=== PATIENT | female | born 1975 | race Caucasian/White ===

== ENCOUNTER → 2019-03-31 | Outpatient (CLI) | payer BC ==
--- NOTE | 2019-03-31 15:45 | US ---
EXAMINATION TYPE: US extremity nonvascular ltd RT DATE OF EXAM: 03/31/2019 COMPARISON: NONE CLINICAL HISTORY: M25.561 right knee pain. Right knee pain TECHNIQUE/FINDINGS: Targeted ultrasound was performed in the area of the patient's pain in the poplit eal fossa behind the right knee. Normal-appearing vasculature and musculature is seen. No subcutaneou s edema. No focal solid or cystic mass. Scanned right popliteal fossa: appears wnl, no Gaytan's cyst s een at this time. IMPRESSION: No sonographic correlate for the patient's pain. No popliteal fossa cyst is seen.
== END | disposition home or self-care (01) ==
LOC: RADUSWWP 14:15
PROVIDERS: ATTEND Family Medicine
DX: M25.561 Pain in right knee (principal)

== ENCOUNTER → 2021-06-13 | Outpatient (CLI) | payer BC ==
--- NOTE | 2021-06-13 09:08 | CT ---
EXAMINATION TYPE: CT angio head DATE OF EXAM: 06/13/2021 8:58 AM COMPARISON: None HISTORY: Family history CT DLP: 1790.2 mGycm Automated exposure control for dose reduction was used. TECHNIQUE: Performed with IV Contrast, patient injected with 100 mL of Isovue 300. . FINDINGS: Ventricular system is compatible with patient's age. No midline shift or acute hemorrhage. Calvarium intact. Intraparenchymal calcification incidentally noted. Orbits are symmetric. Changes of mild chronic sinusitis. Craniocervical junction maintained. Left vertebral artery is dominant. Vertebrobasilar and carotid systems are patent. Anterior cerebral, posterior cerebral and middle cerebral arteries are patent with no sizable aneurysm or vascular malf ormation. IMPRESSION: NO EVIDENCE OF ANEURYSM OR VASCULAR MALFORMATION.
== END | disposition home or self-care (01) ==
LOC: RADCTMAIN 08:08
PROVIDERS: ATTEND Family Medicine
DX: Z82.49 Family history of ischemic heart disease and other diseases of the circulatory system (principal)
CPT/HCPCS: 70496; Q9967

== ENCOUNTER → 2021-07-11 | Outpatient (CLI) | payer BC ==
--- NOTE | 2021-07-12 12:40 | MM ---
Reason for exam: screening (asymptomatic). Last mammogram was performed 2 years and 2 months ago. History: Saline implants in both breasts, 2000. Physical Findings: A clinical breast exam by your physician is recommended on an annual basis and results should be correlated with mammographic findings. MG Screening Mammo Implant/CAD Bilateral CC, MLO, and ID view(s) were taken. Prior study comparison: May 04, 2019, mammogram, performed at [facility]. June 11, 2016, mammogram, performed at [facility]. The breast tissue is heterogeneously dense. This may lower the sensitivity of mammography. Bilateral implants are intact. No significant changes when compared with prior studies. ASSESSMENT: Benign, BI-RAD 2 RECOMMENDATION: Routine screening mammogram of both breasts in 1 year.
== END ==
LOC: RADMAMWWP 13:30
PROVIDERS: ATTEND Family Medicine
DX: Z12.31 Encounter for screening mammogram for malignant neoplasm of breast (principal)
CPT/HCPCS: 77067

== ENCOUNTER → 2021-08-20 | Outpatient (CLI) | payer BC ==
--- NOTE | 2021-08-21 03:56 | MR ---
EXAMINATION TYPE: MR knee RT wo con DATE OF EXAM: 08/20/2021 COMPARISON: None HISTORY: Right knee pain for 2 years. Multiplanar multiecho imaging of the right knee without contrast. Anterior and posterior cruciate ligaments are intact. There is a small knee joint effusion. Patella i s intact. The collateral ligaments are intact. The medial and lateral menisci are intact. I see no bony destructive process. There is no evidence of a fracture. Joint spaces are fairly normal. There is no evidence of a soft tissue mass. IMPRESSION: Small knee joint effusion. No evidence of ligamentous or meniscal tear. No evidence for fracture. Nor mal joint spaces.
== END | disposition home or self-care (01) ==
LOC: RADMRIMAIN 18:23
PROVIDERS: ATTEND Family Medicine
DX: M25.461 Effusion, right knee (principal)

== ENCOUNTER 2022-05-03 16:23 | Emergency (ER) | payer BC ==
[2022-05-03] MEDS ORDERED: KETOROLAC 15 MG/ML 1 ML VIAL IVP STA (16:32)
[2022-05-03 16:35] VITALS: TEMP 98.6
--- NOTE | 2022-05-03 16:35 | ED ---
Chest Pain HPI - General Stated Complaint: chest pain Time Seen by Provider: 05/03/22 16:23 Source: patient, EMS, RN notes reviewed Mode of arrival: EMS - History of Present Illness Initial Comments: 46-year-old female with a benign past medical history who was getting her nails on a local shop when she started developing midsternal chest pain she stated it was 8 or 9/10 severity somewhat dull and achy. It is now down to a 5/10 she has no known history of heart disease she is a nonsmoker. Patient states she felt somewhat lightheaded after this episode started. She does not feel lightheaded or dizzy at this time. She does not recall doing anything strenuous to 1 per her torso. She states she was in a upright position with her arms extended was using her nails on. She states it does hurt to move her to push on the localized area and the pain increases with deep breathing. She'll sweats cough nausea vomiting or other symptoms. Additionally patient states that she just started menopause and does not believe she is MD Complaint: chest pain - Related Data Home Medications Medication Instructions Recorded Confirmed Cholecalciferol [Vitamin D3 (125 125 mcg PO DAILY 05/03/22 05/03/22 Mcg = 5000 Iu)] Focus Supplement(Unknown) 2 cap PO DAILY 05/03/22 05/03/22 Multivitamins, Thera [Multivitamin 1 tab PO DAILY 05/03/22 05/03/22 (formulary)] Vitamin B Complex 1 cap PO DAILY 05/03/22 05/03/22 Previous Rx's Medication Instructions Recorded Ibuprofen [Motrin] 600 mg PO Q6HR PRN #20 tab 05/03/22 Allergies Allergy/AdvReac Type Severity Reaction Status Date / Time hydrocodone [From Vicodin] AdvReac Nausea & Verified 05/03/22 18:27 Vomiting Review of Systems ROS Statement: Those systems with pertinent positive or pertinent negative responses have been documented in the HPI. ROS Other: All systems not noted in ROS Statement are negative. EKG Findings - EKG Results: EKG: interpreted by NOEMI, sinus rhythm, normal axis, normal QRS, normal ST/T, no acute changes (Ventricular rate 52. Interval 166 QRS duration 90 QT since QTC 441/[address]-T wave changes) EKG shows: bradycardia General Exam - General Exam Comments Initial Comments: This is a well-developed well-nourished awake alert oriented 4 female General appearance: alert, in no apparent distress Head exam: Present: atraumatic, normocephalic, normal inspection Eye exam: Present: normal appearance, PERRL, EOMI. Absent: scleral icterus, conjunctival injection, periorbital swelling ENT exam: Present: normal exam, mucous membranes moist Neck exam: Present: normal inspection, full ROM, other (genitourinary or bruits). Absent: tenderness, meningismus, lymphadenopathy Respiratory exam: Present: normal lung sounds bilaterally, chest wall tenderness (Reproducible tenderness palpation of the mid sternum and left costal sternal junction no step-off or crepitation.). Absent: respiratory distress, wheezes, rales, rhonchi, stridor Cardiovascular Exam: Present: regular rate, normal rhythm, normal heart sounds. Absent: systolic murmur, diastolic murmur, rubs, gallop, clicks GI/Abdominal exam: Present: soft, normal bowel sounds. Absent: distended, tenderness, guarding, rebound, rigid Extremities exam: Present: normal inspection, full ROM, normal capillary refill. Absent: tenderness, pedal edema, joint swelling, calf tenderness Back exam: Present: normal inspection Neurological exam: Present: alert, oriented X3, CN II-XII intact Psychiatric exam: Present: normal affect, normal mood Skin exam: Present: warm, dry, intact, normal color. Absent: rash Course Vital Signs 05/03/22 05/03/22 05/03/22 16:28 16:37 18:26 Temperature 98.6 F Pulse Rate 61 70 Pulse Rate [ 52 L [employer] ] Respiratory 18 18 Rate Blood Pressure 123/85 134/84 O2 Sat by Pulse 100 98 Oximetry 05/03/22 19:32 Temperature Pulse Rate 46 L Pulse Rate [ [employer] ] Respiratory 16 Rate Blood Pressure 120/65 O2 Sat by Pulse 98 Oximetry - Reevaluation(s) Reevaluation #1: 05/03/22 18:38 I did a long discussion with the patient and her significant other regarding the findings thus far. A second troponin will be drawn. This is pending at this time. 05/03/22 18:38 Additional patient is currently pain-free at this time except for the presenting pain is reproducible. Reevaluation #2: 05/03/22 20:07 Repeat troponin identical to the initial one. Chest Pain MDM - MDM Imaging reviewed as well as report no acute processes. I did discuss findings the patient and her significant other the patient appears be consistent with chest wall pain/costochondritis be discharged home with instructions for NSAIDs a prescription will be given as well as lifting restrictions for 3 days. Disposition Clinical Impression: Chest wall pain, Costochondritis Disposition: HOME SELF-CARE Condition: Good Instructions (If sedation given, give patient instructions): Costochondritis (ED) Additional Instructions: No heavy lifting about 10 pounds for the next several days. Work note given Prescriptions: Ibuprofen [Motrin] 600 mg PO Q6HR PRN #20 tab PRN Reason: Pain Is patient prescribed a controlled substance at d/c from ED?: No Referrals: Oraico Dodd MD [Primary Care Provider] - 1-2 days Decision Date: 05/03/22 Decision Time: 20:09
[2022-05-03 17:00] LABS: Basophils # (A) 0.1 k/uL (0-0.2); Basophils % (A) 1 %; Eosinophils # (A) 0.2 k/uL (0-0.7); Eosinophils % (A) 3 %; HCT 40.6 % (34.0-46.0); HGB 13.2 gm/dL (11.4-16.0); Lymphocytes # (A) 2.8 k/uL (1.0-4.8); Lymphocytes % (A) 33 %; MCH 30.9 pg (25.0-35.0); MCHC 32.6 g/dL (31.0-37.0); Monocytes # (A) 0.4 k/uL (0-1.0); Monocytes % (A) 5 %; Neutrophils # (A) 4.7 k/uL (1.3-7.7); Neutrophils % (A) 57 %; Platelet Count 232 k/uL (150-450); RBC 4.27 m/uL (3.80-5.40); WBC 8.4 k/uL (3.8-10.6)
--- NOTE | 2022-05-03 17:01 | XR ---
EXAMINATION TYPE: XR chest 2V DATE OF EXAM: 05/03/2022 4:58 PM COMPARISON: Chest radiographs from TECHNIQUE: XR chest 2V Frontal and lateral views of the chest. CLINICAL INDICATION:Female, 46 years old with history of Chest Pain; FINDINGS: Lungs/Pleura: There is no evidence of pleural effusion, focal consolidation, or pneumothorax. Pulmonary vascularity: Unremarkable. Heart/mediastinum: Cardiomediastinal silhouette is unremarkable. Musculoskeletal: No acute osseous pathology. IMPRESSION: No acute cardiopulmonary disease/process.
[2022-05-03 17:04] LABS: Appearance,Urine Clear (Clear); Bilirubin,Urine Negative (Negative); Blood,Urine Negative (Negative); Color,Urine Light Yellow; Glucose,Urine (UA) Negative (Negative); Hyaline Casts,Urine 10 /lpf (0-2); Ketones,Urine Negative (Negative); Leukocyte Esterase,Urine Trace (Negative); Mucus,Urine Rare /hpf; Nitrite,Urine Negative (Negative); Protein,Urine Negative (Negative); RBC,Urine 3 /hpf (0-5); Specific Gravity,Urine 1.017 (1.001-1.035); Squamous Epithelial Cell,Urine 2 /hpf (0-4); Urobilinogen,Urine <2.0 mg/dL (<2.0); WBC,Urine 2 /hpf (0-5)
[2022-05-03 17:11] LABS: ALT 34 U/L (4-34); AST 35 U/L (14-36); African American GFR (CKD) >90 (>60 ml/min/1.73 sqM); Albumin 4.8 g/dL (3.5-5.0); Alkaline Phosphatase 74 U/L (38-126); Anion Gap 13 mmol/L; Blood Urea Nitrogen 26 mg/dL (7-17); Calcium 9.9 mg/dL (8.4-10.2); Carbon Dioxide 23 mmol/L (22-30); Chloride 101 mmol/L (98-107); Glucose 102 mg/dL (74-99); Lipase 209 U/L (23-300); Magnesium 2.1 mg/dL (1.6-2.3); Non-African American GFR(CKD) 86 (>60 ml/min/1.73 sqM); Potassium 3.7 mmol/L (3.5-5.1); Sodium 137 mmol/L (137-145); Total Bilirubin 0.3 mg/dL (0.2-1.3); Total Protein 7.5 g/dL (6.3-8.2)
[2022-05-03 17:20] LABS: INR 0.9 (<1.2); Prothrombin Time 9.8 sec (9.0-12.0)
[2022-05-03 17:22] LABS: Partial Thromboplastin Time 21.3 sec (22.0-30.0)
[2022-05-03] MEDS ORDERED: MAG HYDROX/AL HYDROX/SIMETH 30 ML, HYOSCYAMINE ELIXIR 10 ML PO STA ×2 (17:42)
[2022-05-03 19:33] VITALS: BP 120/65; RESP 16
[2022-05-03 20:42] VITALS: PULSE 60
== END 2022-05-03 20:41 | disposition home or self-care (01) ==
LOC: EC 16:23
DX: R07.89 Other chest pain (principal); M94.0 Chondrocostal junction syndrome [Tietze]; Z88.5 Allergy status to narcotic agent
CPT/HCPCS: 36415; 71046; 80053; 81001; 81025; 83690; 83735; 83880; 84484; 85025; 85379; 85610; 85730; 93005; 96374; 99285

== ENCOUNTER 2022-07-03 09:54 | Day surgery (SDC) | payer BC ==
[2022-07-01 13:15] VITALS: BMI 26.6
[~2022-07-03 09:54] MED LIST: LIDOCAINE 1% (10MG/ML) FOR IV START INTRADERMA PRN; ONDANSETRON 4 MG/2 ML VIAL IVP PRN
[2022-07-03 11:45] VITALS: TEMP 97.4
[2022-07-03] MEDS: LACTATED RINGERS 1,000 ML IV SCH ×3 (12:08→12:22)
[2022-07-03] MEDS ORDERED: LIDOCAINE 2% INJ 20 MG/ML (2 ML VIAL) ONE (12:22)
[2022-07-03] MEDS ORDERED: PROPOFOL 10 MG/ML 20 ML VIAL IV ONE (12:22)
--- NOTE | 2022-07-03 12:36 | P.PCN ---
Date of Procedure: 07/03/22 Procedure(s) Performed: BRIEF HISTORY: Patient is a 46-year-old pleasant white female scheduled for an elective colonoscopy as a part of screening for colon cancer. PROCEDURE PERFORMED: Colonoscopy with biopsy PREOPERATIVE DIAGNOSIS: Screening for colon cancer. IV sedation per Anesthesia. PROCEDURE: After informed consent was obtained, the patient, was brought into the endoscopy unit. IV sedation was administered by Anesthesia under continuous monitoring. Digital rectal examination was normal. Initially the Olympus CF-160 flexible video colonoscope was then inserted in the rectum, gradually advanced into the cecum without any difficulty. Careful examination was performed as the scope was gradually being withdrawn. Ileocecal valve and the appendiceal orifice were visualized and appeared normal. Prep was excellent. Mucosa of the cecum, had 3 mm sessile polyp removed by cold biopsy. In the ascending colon there was another 3 mm sessile polyp removed by cold biopsy. Rest of the ascending colon, transverse colon, descending colon, sigmoid colon, and rectum appeared normal. Retroflexion was performed in the rectum and no lesions were seen. The patient tolerated the procedure well. IMPRESSION: 3 mm cecal polyp status post cold biopsy 3 mm sessile ascending colon polyp status post cold biopsy Rest of the colon appeared normal RECOMMENDATIONS: Findings of this examination were discussed with the patient as well as her family. She was advised to follow with the biopsy results. If the biopsy reveals adenoma she can have a repeat colonoscopy in 5 years.
[2022-07-03 12:44] VITALS: RESP 16
[2022-07-03 12:55] VITALS: BP 129/59; PULSE 62
== END 2022-07-03 13:30 | disposition home or self-care (01) ==
LOC: ORWHC2ENDO 09:54
PROVIDERS: ATTEND Internal Medicine Gastroenterology
DX: Z12.11 Encounter for screening for malignant neoplasm of colon (principal); D12.2 Benign neoplasm of ascending colon; I25.10 Atherosclerotic heart disease of native coronary artery without angina pectoris; K21.9 Gastro-esophageal reflux disease without esophagitis; Z88.5 Allergy status to narcotic agent; Z79.899 Other long term (current) drug therapy; Z98.82 Breast implant status
CPT/HCPCS: 81025; 88305; 45380; J2704; J2001

== ENCOUNTER → 2023-07-02 | Outpatient (CLI) | payer BC ==
--- NOTE | 2023-07-03 10:51 | CT ---
EXAMINATION TYPE: CT abdomen pelvis w con DATE OF EXAM: 07/02/2023 COMPARISON: None HISTORY: Bloating and constipation x [address] DLP: 621.3 mGycm Automated exposure control for dose reduction was used. CONTRAST: CT scan of the abdomen pelvis is performed with IV Contrast, patient injected with 100 cc mL of Isovu e 300. FINDINGS- LUNG BASES- No significant abnormality is appreciated. Post breast surgery. LIVER/GB- No gross abnormality is appreciated. PANCREAS- No gross abnormality is seen. SPLEEN- No gross abnormality is seen. ADRENALS- No gross abnormality is seen. KIDNEYS/BLADDER- no hydronephrosis nephrolithiasis or renal mass. BOWEL- small hiatal hernia. Stomach nondistended limiting assessment. Mild concentric wall thickenin g in distal right LYMPH NODES- No greater than 1cm abdominal or pelvic lymph nodes are appreciated. OSSEOUS STRUCTURES- No significant abnormality is seen. OTHER- small fat-containing periumbilical hernia. Multilevel mild degenerative disc disease. IMPRESSION- 1. No acute process. There is a small hiatal hernia. Correlate with EGD if there is concern for reflu x esophagitis. 2. There is mild concentric localized wall thickening of the distal right colon which extends into th e pelvis. This could be transient related to peristalsis. Mucosal abnormality not excluded. Correlate with patient's symptoms. If clinically warranted a colonoscopy and direct visualization could be obt ained.
== END | disposition home or self-care (01) ==
LOC: RADCTMAIN 17:22
PROVIDERS: ATTEND Family Medicine
DX: K44.9 Diaphragmatic hernia without obstruction or gangrene (principal); K63.89 Other specified diseases of intestine; R14.0 Abdominal distension (gaseous)
CPT/HCPCS: 74177; Q9967

== ENCOUNTER 2023-10-17 07:19 | Day surgery (SDC) | payer BC ==
[2023-10-15 09:30] VITALS: BMI 27.1
[2023-10-17] MEDS: LACTATED RINGERS 1,000 ML IV SCH (07:52)
[2023-10-17 08:16] VITALS: RESP 16; TEMP 98.2
[2023-10-17] MEDS ORDERED: LIDOCAINE 1% INJ 10MG/ML (20 ML MDV) ONE (08:38)
[2023-10-17] MEDS ORDERED: PROPOFOL 10 MG/ML 20 ML VIAL IV ONE (08:38)
--- NOTE | 2023-10-17 08:53 | P.PCN ---
Date of Procedure: 10/17/23 Procedure(s) Performed: BRIEF HISTORY: Patient is a 48-year-old, pleasant, white female scheduled for an upper endoscopy as a part of evaluation of epigastric pain for the last 20 years duration. Recently has been on Pepcid 20 mg twice daily with no improvement in his symptoms.. PROCEDURE PERFORMED: Esophagogastroduodenoscopy with biopsy. PREOPERATIVE DIAGNOSIS: Chronic epigastric pain of 20 years duration. IV sedation per anesthesia. PROCEDURE: After informed consent was obtained, the patient was brought into the endoscopy unit. IV sedation was administered by Anesthesia under continuous monitoring. Initially the Olympus GIF-140 video endoscope was inserted into the mouth. Esophagus intubated without any difficulty. It was gradually advanced into the stomach and duodenum and carefully examined. The bulb and the second part of the duodenum appeared normal. The scope at this time was withdrawn to the stomach, adequately insufflated with air, and upon careful examination, mucosa of the antrum, had patchy areas of erythema and with gastritis and biopsies were done from this area. Mucosa of the body, cardia and the fundus appeared normal. The scope was then withdrawn into the esophagus. The GE junction was located at 39 cm from the incisors. There were linear erosions in the distal esophagus consistent with LA grade B reflux esophagitis. The rest of esophagus appeared normal and the patient tolerated the procedure well. IMPRESSION: 1. Linear erosions in the distal esophagus consistent with LA grade B reflux esophagitis. 2. Mild antral gastritis. RECOMMENDATIONS: The findings of this examination were discussed with the patient as well as her family. She was advised to start on Protonix 40 mg daily and use Pepcid as needed and follow antireflux measures. Follow-up in office in 2 weeks.
[2023-10-17 09:25] VITALS: BP 134/84; PULSE 56
== END 2023-10-17 09:55 | disposition home or self-care (01) ==
LOC: ORWHC2ENDO 07:19
PROVIDERS: ATTEND Internal Medicine Gastroenterology
DX: K29.50 Unspecified chronic gastritis without bleeding (principal); K31.A0 Gastric intestinal metaplasia, unspecified; K21.00 Gastro-esophageal reflux disease with esophagitis, without bleeding; G89.29 Other chronic pain; G47.33 Obstructive sleep apnea (adult) (pediatric); G43.909 Migraine, unspecified, not intractable, without status migrainosus; F32.A Depression, unspecified; F41.9 Anxiety disorder, unspecified; K52.9 Noninfective gastroenteritis and colitis, unspecified; K86.1 Other chronic pancreatitis; Z79.899 Other long term (current) drug therapy; Z88.5 Allergy status to narcotic agent; Z98.890 Other specified postprocedural states
CPT/HCPCS: 88305; 88312; 88342; 43239; J2001; J2704

== ENCOUNTER → 2023-12-18 | Outpatient (CLI) | payer BC ==
--- NOTE | 2023-12-22 08:35 | MM ---
Reason for Exam: Screening (asymptomatic). Last mammogram was performed 1 year(s) and 2 month(s) ago. Patient History: Menarche at age 14. First Full-Term at age 28. Postmenopausal. 2000, Bilateral Implants. Risk Values: Aida 5 year model risk: 1.0%. NCI Lifetime model risk: 10.3%. Prior Study Comparison: 05/04/2019 Screening Mammogram, [facility]. 07/11/2021 Bilateral Screening Mammogram, [facility]. 10/01/2022 Bilateral MG screening mammo implant/CAD, [facility]. Tissue Density: There are scattered areas of fibroglandular density. Findings: Analyzed By CAD. Bilateral breast implants appear intact. Right breast: Asymmetry right breast anterior/middle depth 3.5 cm from the nipple in the superior aspect measuring approximately 7 mm. Left breast: There is no suspicious group of microcalcifications or new suspicious mass. Overall Assessment: Incomplete: need additional imaging evaluation, BI-RAD 0 Management: Diagnostic Mammogram of the right breast. [facility] will attempt to contact patient to return for supplemental views and ultrasound if indicated. Patient should continue monthly self-breast exams. A clinical breast exam by your physician is recommended on an annual basis. This exam should not preclude additional follow-up of suspicious palpable abnormalities. Note on Aida scores and lifetime risk: 1. A Aida score greater than 3% is considered moderate risk. If this is the case, consider specialist referral to assess eligibility for a risk reducing agent. 2. If overall lifetime risk for the development of breast cancer is 20% or higher, the patient may qualify for future screening with alternating mammogram and breast MRI. Electronically signed and approved by: Sukhjinder Burks DO
== END | disposition home or self-care (01) ==
LOC: RADMAMWWP 15:34
PROVIDERS: ATTEND Obstetrics & Gynecology
DX: Z12.31 Encounter for screening mammogram for malignant neoplasm of breast (principal); Z78.0 Asymptomatic menopausal state
CPT/HCPCS: 77063; 77067

== ENCOUNTER → 2023-12-31 | Outpatient (CLI) | payer BC ==
--- NOTE | 2023-12-31 12:49 | US ---
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 TECHNIQUE: Transvaginal (TV). Transabdominal sonographic images of the pelvis were acquired. 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 Uterus: Anteverted Heterogenous 2. Endometrium: Normal thickness. Echogenic focus measuring 0.2 cm likely representing a benign calci fication of doubtful clinical significance. 3. Right Ovary: wnl 4. Left Ovary: wnl 5. Bilateral Adnexa: no free fluid 6. Posterior cul-de-sac: no free fluid IMPRESSION: No ultrasound evidence of clinical significant abnormality. Normal endometrial thickness.
== END | disposition home or self-care (01) ==
LOC: RADUSWWP 11:29
PROVIDERS: ATTEND Family Medicine
DX: N95.0 Postmenopausal bleeding (principal)
CPT/HCPCS: 76830

== ENCOUNTER → 2024-01-12 | Outpatient (CLI) | payer BC ==
--- NOTE | 2024-01-13 07:46 | US ---
EXAMINATION TYPE: US carotid duplex BILAT DATE OF EXAM: 01/12/2024 COMPARISON: NONE CLINICAL INDICATION: Female, 48 years old with history of I65.29 OCCLUSION AND STENOSIS OF UNSPECIFIE D CAROT; patient had thermal scan that showed 50% reduction of perfusion within bilateral opthalmic a rteries, no h/o stroke, no symptoms TECHNIQUE: Carotid duplex ultrasound examination. Indirect Doppler criteria was utilized. FINDINGS: EXAM MEASUREMENTS: RIGHT: Peak Systolic Velocity (PSV) cm/sec ----- Right CCA: 81.9 ----- Right ICA: 84.4 ----- Right ECA: 82.1 ICA/CCA ratio: 1.0 RIGHT: End Diastole cm/sec ----- Right CCA: 23.4 ----- Right ICA: 35.0 ----- Right ECA: 11.5 LEFT: Peak Systolic Velocity (PSV) cm/sec ----- Left CCA: 74.5 ----- Left ICA: 114.0 ----- Left ECA: 74.6 ICA/CCA ratio: 1.5 LEFT: End Diastole cm/sec ----- Left CCA: 20.6 ----- Left ICA: 52.2 ----- Left ECA: 18.4 VERTEBRALS (direction of flow): Right Vertebral: Antegrade Left Vertebral: Antegrade Rhythm: Normal [employer] NOTES: Mild homogeneous plaque with no stenosis IMPRESSION: Mild atheromatous plaquing without significant flow-limiting stenosis. Some intimal thickening is not ed within the bilateral common carotid arteries. Criteria for Assigning % of Stenosis / Diameter reduction (Estimation based on the indirect measurements of the internal carotid artery velocities (ICA PSV). 1. Normal (no stenosis)=ICA PSV < 125 cm/s: ratio < 2.0: ICA EDV<40 cm/s. 2. Less than 50% stenosis=ICA PSV < 125 cm/s: ratio < 2.0: ICA EDV<40 cm/s. 3. 50 to 69% stenosis=ICA PSV of 125 to 230 cm/s: ration 2.0 ? 4.0: ICA EDV 40-100 cm/s. 4. Greater than 70% stenosis to near occlusion= ICA PSV > 230 cm/s: ratio > 4.0: ICA EDV > 100 cm/s. 5. Near occlusion= ICA PSV velocities may be low or undetectable: variable ratio and ICA EDV. 6. Total occlusion=unable to detect flow.
== END | disposition home or self-care (01) ==
LOC: RADUSWWP 15:19
PROVIDERS: ATTEND Family Medicine
DX: I65.23 Occlusion and stenosis of bilateral carotid arteries (principal)
CPT/HCPCS: 93880

== ENCOUNTER → 2024-02-11 | Outpatient (CLI) | payer BC ==
--- NOTE | 2024-02-13 08:14 | BMR ---
EXAM DATE: 02/11/2024 EXAM DESCRIPTION: MRI-Breast Bilat (W/WO Contrast) INDICATION: Abnormal mammogram COMPARISON: Prior mammogram dated 12/18/2023 and earlier CONTRAST: 6.3 cc Gadavist contrast material. TECHNIQUE: Multi sequence multiplanar MR imaging of the breasts was obtained. Subsequently, after the uneventful intravenous administration of Gadavist contrast material, 6 dynamic sequences were then obtained. Post processing was performed utilizing a [employer] CAD workstation. FINDINGS: The breasts are composed of scattered fibroglandular tissue. There is mild background parenchymal enhancement identified. No axillary or internal mammary lymphadenopathy. Lymph nodes with benign morphology are present in the axillary regions. No focal skin thickening or nipple retraction. The bone marrow signal intensity is unremarkable. T2 weighted images demonstrated a few subcentimeter T2 bright lesions in both breasts likely representing fibrocystic changes. Stable and intact bilateral subpectoral saline implants. Post contrast images demonstrated several foci of varying degree of enhancements in both breasts likely related to benign background parenchyma. A 0.6 cm persistent enhancing nodule with bright signal intensity on corresponding T2 images (504 image 303 image 401 image 26) likely benign lymph node or a small fibroadenoma. There is no abnormal signal or enhancement in the chest wall or subcutaneous tissue. IMPRESSION: 1. No MR evidence of malignancy in either breast. 2. No axillary or internal mammary lymphadenopathy. 3. Intact bilateral subpectoral saline implants. Final assessment: BI-RADS category 2: Benign findings MTDD
== END | disposition home or self-care (01) ==
LOC: RADMRIMAIN 21:30
PROVIDERS: ATTEND Family Medicine
DX: R92.323 Mammographic fibroglandular density, bilateral breasts (principal); R92.8 Other abnormal and inconclusive findings on diagnostic imaging of breast; N63.10 Unspecified lump in the right breast, unspecified quadrant; Z98.82 Breast implant status
CPT/HCPCS: 77049; A9585

== ENCOUNTER → 2025-02-18 | Outpatient (CLI) | payer BC ==
--- NOTE | 2025-02-21 07:50 | MM ---
Reason for Exam: Screening (asymptomatic). Last mammogram was performed 1 year(s) and 2 month(s) ago. Patient History: Menarche at age 14. First Full-Term at age 28. Postmenopausal. Patient used Hormonal Contraceptives for 5 years. 2000, Bilateral Implants. Risk Values: Aida 5 year model risk: 1.0%. NCI Lifetime model risk: 10.2%. Prior Study Comparison: 07/11/2021 Bilateral Screening Mammogram, [facility]. 10/01/2022 Bilateral MG screening mammo implant/CAD, [facility]. 12/18/2023 Bilateral MG 3D screening mammo w/cad, [facility]. Tissue Density: The breasts are heterogeneously dense, which may obscure small masses. Findings: Analyzed By CAD. Retropectoral saline implants. Small circumscribed low density nodularity upper outer quadrant left breast apparent on 3-D images. Otherwise, areas of asymmetric density are unchanged. There is no suspicious group of microcalcifications or new suspicious mass in either breast. Overall Assessment: Benign, BI-RAD 2 Management: Screening Mammogram of both breasts in 1 year. Patient should continue monthly self-breast exams. A clinical breast exam by your physician is recommended on an annual basis. This exam should not preclude additional follow-up of suspicious palpable abnormalities. Note on Aida scores and lifetime risk: 1. A Aida score greater than 3% is considered moderate risk. If this is the case, consider specialist referral to assess eligibility for a risk reducing agent. 2. If overall lifetime risk for the development of breast cancer is 20% or higher, the patient may qualify for future screening with alternating mammogram and breast MRI. [facility], , 02/21/2025 7:47 AM. Electronically signed and approved by: Angel Scott M.D. Radiologist
== END | disposition home or self-care (01) ==
LOC: RADMAMWWP 15:44
PROVIDERS: ATTEND Family Medicine
DX: Z12.31 Encounter for screening mammogram for malignant neoplasm of breast (principal); R92.333 Mammographic heterogeneous density, bilateral breasts; Z78.0 Asymptomatic menopausal state; Z92.0 Personal history of contraception
CPT/HCPCS: 77063; 77067